=== PATIENT | male | born 2005 | race Caucasian/White ===

== ENCOUNTER 2023-12-09 09:58 | Emergency (ER) | payer OTHER ==
[~2023-12-09] VITALS: Ht 182.9 cm; Wt 72.0 kg
[2023-12-09 10:05] VITALS: BP 128/72; PULSE 87; RESP 18; TEMP 98.4; O2SAT 100
[2023-12-09] MEDS: BACITRACIN ZINC OINT UDPKT TOP ONE (10:30)
[2023-12-09] MEDS ORDERED: CEPH500T MT (11:40)
== END 2023-12-09 11:45 | disposition home or self-care (01) ==
LOC: ER 10:31
DX: S61.217A Laceration without foreign body of left little finger without damage to nail, initial encounter (principal); X58.XXXA Exposure to other specified factors, initial encounter; Y93.89 Activity, other specified; Y92.89 Other specified places as the place of occurrence of the external cause; Y99.8 Other external cause status
CPT/HCPCS: 73140; 99283